=== PATIENT | male | born 1990 | race Asian ===

== ENCOUNTER 2024-09-04 19:45 | Emergency (ER) | payer OTHER, SELFPAY ==
[2024-09-04 20:05] VITALS: BP 161/95
[2024-09-04 20:21] LABS: Glucose - Point of Care 152 mg/dl (70-99)
[2024-09-04 21:29] LABS: % Basophils 0.6 % (0-2); % Eosinophils 4.5 % (0-6); % Immature Granulocytes 0.5 % (0-0.5); % Monocytes 5.6 % (1.7-9.3); % Neutrophils 64.8 % (42.2-75.2); Absolute Basophils 0.1 10^3/uL (0-0.2); Absolute Eosinophils 0.5 10^3/uL (0-0.7); Absolute Immature Granulocytes 0.1 10^3/uL (0-0.05); Absolute Lymphocytes 2.6 10^3/uL (1.2-3.4); Absolute Monocytes 0.6 10^3/uL (0.1-0.6); Absolute Neutrophils 7.1 10^3/uL (1.4-6.5); Hematocrit 42.4 % (39.0-52.0); Hemoglobin 15.2 g/dL (13.0-18.0); Mean Corp Hgb Conc. 35.8 g/dL (33.0-37.0); Mean Corpuscular Volume 80.9 fL (80.0-94.0); Mean Platelet Volume 9.5 fL (7.4-10.4); Nucleated Red Blood Cells % 0 % (-); Platelet Count 225 10^3/uL (130-400); Red Blood Cell Count 5.24 10^6/uL (4.70-6.10); Red Cell Dist. Width 12.3 % (11.5-14.5)
[2024-09-04 21:42] LABS: ALT (SGPT) 156 U/L (0-50); AST (SGOT) 124 U/L (17-59); Albumin 5.1 g/dl (3.5-5.0); Alkaline Phosphatase 86 U/L (38-126); Blood Urea Nitrogen 5 mg/dl (9-20); Calcium 10.2 mg/dl (8.4-10.2); Carbon Dioxide 26 mmol/L (22-30); Chloride 99 mmol/L (98-107); Glucose 148 mg/dl (70-99); Potassium 4.2 mmol/L (3.5-5.1); Sodium 141 mmol/L (135-145); eGFR > 60.00
[2024-09-04 22:12] LABS: TSH Reflex To Free T4 2.11 uIU/ml (0.47-4.68)
[2024-09-05 00:02] VITALS: BP 161/100
--- NOTE | 2024-09-05 00:11 | ED.GENMED ---
History of Present Illness
General
Chief Complaint: Heart Rate Problem
Source: patient
Exam Limitations: none
Time Seen by Provider: 09/05/24 00:09
History of Present Illness
History of Present Illness:
See MDM
Past History
Past History
ED Past Medical History: None
ED Past Surgical History: None
Social History
Tobacco: Non-smoker
Alcohol: Occasional
Phy Exam
Physical Exam
Physical Exam:
See MDM
Course
Orders/Labs/Results
Orders:
Orders
09/04/24 19:49
Electrocardiogram (*1) Urgent
Reason for Study: Palpitations
EKG- Treatment ONCE
09/04/24 21:18
Complete Blood Count/With Diff Urgent
Comprehensive Metabolic Panel Urgent
TSH Reflex To Free T4 Urgent
Abnormal Lab Results
09/04/24 09/04/24
20:19 21:18
WBC 11.0 H 10^3/uL
(4.8-10.8)
Abs Immat Gran (auto) 0.1 H 10^3/uL
(0-0.05)
Absolute Neuts (auto) 7.1 H 10^3/uL
(1.4-6.5)
BUN 5 L mg/dl
(9-20)
Creatinine 0.6 L mg/dL
(0.7-1.3)
Glucose 148 H mg/dl
(70-99)
AST 124 H U/L
(17-59)
ALT 156 H U/L
(0-50)
Albumin 5.1 H g/dl
(3.5-5.0)
POC Glucose 152 H mg/dl
(70-99)
09/04/24 21:18
09/04/24 21:18
Vital Signs
Initial and Last Documented VS:
Initial Vital Signs
Temp Pulse Resp BP Pulse Ox
98.1 F 69 20 161/95 99
09/04/24 20:05 09/04/24 20:05 09/04/24 20:05 09/04/24 20:05 09/04/24 20:05
Last Documented Vital Signs
Temp Pulse Resp BP Pulse Ox
99.8 F 62 20 161/100 99
09/05/24 00:02 09/05/24 00:02 09/05/24 00:02 09/05/24 00:02 09/05/24 00:02
MDM/Problems Addressed
Differential Diagnosis Includes:
HPI and MDM Narrative:
33-year-old male presenting for evaluation of palpitations. Patient states he was driving home and he felt his heart racing. Patient does acknowledge that he felt anxious at the time. Patient came to emergency department for evaluation. Patient
has been in the emergency department in the waiting room for prolonged observation. His blood work does show mild LFTs for which he states this is somewhat normal for him. He equates this to alcohol use. His EKG is normal sinus rhythm. Patient
stated that he wants to leave. He believes that he did not get much sleep last night due to sinusitis. On exam, he is well-appearing nontoxic. His heart is regular rate and rhythm. We discussed talking to his doctor about a Holter monitor and to
rediscuss his LFTs
Physical exam
General: Well appearing and non-toxic
HEENT: protecting airway
Neck: appears supple
CV: No evidence of cyanosis. Regular rate and rhythm
Resp: No accessory muscle use
Abd: Non-distended
Extremities: No deformities
Neuro: alert
Psych: Normal affect
Skin: Intact
Problems Addressed including Acute and Chronic Conditions affecting care:
1. Palpitations
Acuity: acute
Prognosis: stable
Details: Potentially anxiety related. Discussed outpatient Holter monitor. EKG normal sinus
2. Elevated LFTs
Acuity: acute
Prognosis: stable
Details: Potentially in the setting of alcohol use. Discussed how this reevaluated by PCP. Patient denies abdominal pain
Updates
Patient left with verbal discharge instructions. He did not wait for written instruction
Differential Diagnosis (but not limited to): SVT, A-fib
Testing considered: Right upper quadrant ultrasound is no tenderness
Drug therapy (if applicable): OTC meds, please see d/c instruction regarding Rx drugs
Amount and/or Complexity of Data Reviewed
Clinical info obtained from: Patient
External data reviewed: N/A
Labs I independently reviewed (but not limited to): Elevated LFTs
Radiology: N/A
Pulse Ox: not hypoxic
EKG independently reviewed: Sinus rhythm, normal axis, no STEMI
Sat[employer]er: N/A
Critical Care: N/A
Risk of Complication:
Social Determinants of health: Good social support
Discussed with other providers: N/A
Escalation of Care includes Admit/Obs: After being observed in the Emergency Department, pt stable for discharge.
Occasional wrong word or 'sound a like' substitutions may have occurred due to the inherent limitations of voice recognition software. Read the chart carefully and recognize, using context, where substitutions have occurred.
*Critical Care Note
Total Time (30-74mins, 75-104mins- exclusive of procedures): Not Applicable
ED Attending Note
-
Portions of this chart may have been created with voice recognition software.� Occasional wrong word or��sound alike� substitutions may have occurred due to the inherent limitations of voice recognition software.
Discharge Plan
Departure
Patient Disposition: Home (Routine Discharge)
Date of Disposition: 09/05/24
Time of Disposition: 00:15
Patient with high blood pressure during this ER visit?: Yes
Discharge Problem:
Heart palpitations, Elevated LFTs
Instructions: BLOOD PRESSURE
Interventions
Interventions:
*Risk Screen - Suicide Last Done: 09/04/24 20:05
*General Assessment Last Done: 09/04/24 20:05
*Neglect/Abuse Screening Last Done: 09/04/24 20:05
ED- Fall Risk Assessment Last Done: 09/04/24 20:05
*ED COVID-19 Vaccine History Last Done: 09/04/24 20:05
ED- Cardiac Assessment Last Done: 09/05/24 00:05
ED- Pulmonary Assessment Last Done: 09/05/24 00:05
Discharge Date and Time
Print Language: [place]
== END 2024-09-05 00:18 | disposition home or self-care (01) ==
LOC: EMR 19:45
PROVIDERS: Emergency Medicine; EMERGENCY PHYSICIAN Student in an Organized Health Care Education/Training Program
DX: R00.2 Palpitations (principal); R79.89 Other specified abnormal findings of blood chemistry; R03.0 Elevated blood-pressure reading, without diagnosis of hypertension
CPT/HCPCS: 99284; 80053; 82962; 84443; 85025; 93005